=== PATIENT | male | born 1935 | race Caucasian/White ===

== ENCOUNTER 2020-02-29 10:52 | Emergency (ER) | payer OTHER ==
[2020-02-29] MEDS ORDERED: Sodium Chloride 0.9% 10 ML Syringe FLUSH PRN (11:10)
[2020-02-29] MEDS: Diltiazem 25 MG/5 ML SDV IVPUSH ONE (11:27)
[2020-02-29] MEDS: Diltiazem IR 60 MG Tab PO ONE (11:55)
--- NOTE | 2020-02-29 13:01 | EDM.PDOC ---
ED HPI GENERAL MEDICAL PROBLEM - General Chief Complaint: Chest Pain Stated Complaint: Chest Pain Time Seen by Provider: 02/29/20 10:56 Source of Information: Reports: Patient, Other ([place] Home) History Limitations: Reports: No Limitations - History of Present Illness INITIAL COMMENTS - FREE TEXT/NARRATIVE: Patient sent to ER for evaluation of complaint of left chest discomfort and near-syncope sensation. Chest pain resolved by time of arrival. Denies any other acute changes. No covid exposure. No fevers/chills No HEENT changes such as cold symptoms/sore throat/cold symptoms. No Resp changes. Has baseline chronic SOB that is unchanged. No new cough/wheeze/sputum. CV + for short episode left sided chest discomfort/now resolved. No palpitations. + for dizziness/feeling like going to pass out. GI negative for acute changes/nausea/emesis/bowel changes Gu negative for acute changes. Hx BPH/chronic issues with frequency and nocturia. Neuro negative for acute changes. No reported med changes. - Related Data Allergies Allergy/AdvReac Type Severity Reaction Status Date / Time aspirin Allergy Cannot Verified 02/29/20 11:16 Remember colestipol Allergy Cannot Verified 02/29/20 11:17 Remember etodolac Allergy Cannot Verified 02/29/20 11:17 Remember simvastatin Allergy Cannot Verified 02/29/20 11:18 Remember Home Meds: Home Meds Alfuzosin HCl [Alfuzosin HCl ER] 10 mg PO BEDTIME 02/29/20 [History] Apixaban [Eliquis] 2.5 mg PO BID@02/29/20 [History] Cholecalciferol (Vitamin D3) [Vitamin D3] 2,000 unit PO DAILY 02/29/20 [History] Clopidogrel Bisulfate [Clopidogrel] 75 mg PO BEDTIME 02/29/20 [History] Furosemide 20 mg PO MOWEFR@02/29/20 [History] Isosorbide Mononitrate [Imdur] 60 mg PO DAILY 02/29/20 [History] Levothyroxine Sodium [Synthroid] 100 mcg PO DAILY 02/29/20 [History] Metoprolol Succinate 50 mg PO DAILY 02/29/20 [History] Nitroglycerin 0.4 mg SL ASDIRECTED 02/29/20 [History] Omeprazole 40 mg PO BID@02/29/20 [History] Rosuvastatin Calcium 20 mg PO DAILY 02/29/20 [History] Sennosides/Docusate Sodium [Senna Plus Tablet] 2 each PO BID@02/29/20 [History] traMADol [Ultram] 50 mg PO TID PRN 02/29/20 [History] Past Medical History HEENT History: Reports: Hard of Hearing, Macular Degeneration Cardiovascular History: Reports: Afib, CAD, Heart Failure, High Cholesterol, Hypertension, Other (See Below) (First degree AV block, carotid artery stenosis) Gastrointestinal History: Reports: Chronic Constipation, GERD Genitourinary History: Reports: BPH, Chronic Renal Insuffiency Musculoskeletal History: Reports: Back Pain, Chronic, Osteoarthritis Neurological History: Reports: CVA Endocrine/Metabolic History: Reports: Hypothyroidism, Obesity/BMI 30+, Vitamin D Deficiency Social & Family History - Tobacco Use Smoking Status *Q: Never Smoker ED ROS GENERAL - Review of Systems Review Of Systems: Comprehensive ROS is negative, except as noted in HPI. ED EXAM, GENERAL - Physical Exam Exam: See Below Exam Limited By: No Limitations General Appearance: Alert, No Apparent Distress, Obese Eye Exam: Bilateral Eye: EOMI, PERRL Ears: Other (Hard of hearing) Nose: No: Nasal Deformity, Nasal Swelling, Nasal Drainage Throat/Mouth: Normal Lips, Normal Voice, No Airway Compromise Head: Atraumatic, Normocephalic Neck: Supple Respiratory/Chest: No Respiratory Distress, Lungs Clear, No Accessory Muscle Use, Chest Non-Tender Cardiovascular: Tachycardia, Irregularly Irregular GI/Abdominal: Soft, Non-Tender, Other (obese) (Male) Exam: Deferred Rectal (Males) Exam: Deferred Back Exam: No: CVA Tenderness (L), CVA Tenderness (R), Muscle Spasm Extremities: Normal Capillary Refill Neurological: Alert, Oriented, Other (equal tone/strength bilat) Psychiatric: Normal Affect, Normal Mood Skin Exam: Warm, Dry, Intact, Normal Color EKG INTERPRETATION EKG Date: 02/29/20 Time: 10:57 Rhythm: A-Fib Rate (Beats/Min): 135 [place]: Normal P-Wave: Absent QRS: Other (bifasicular block) ST-T: Other (no acute changes suggestive is ischemia noted) QT: Normal Comparison: NA - No Prior EKG Course - Vital Signs Last Recorded V/S: Last Vital Signs Temp 36.1 C 02/29/20 10:55 Pulse 97 02/29/20 10:55 Resp 16 02/29/20 10:55 BP 125/83 02/29/20 10:55 Pulse Ox 93 L 02/29/20 10:55 - Orders/Labs/Meds Orders: Active Orders 24 hr Category Date Time Status EKG Documentation Completion [RC] ASDIRECTED Care 02/29/20 11:12 Active Chest 2V [CR] Stat Exams 02/29/20 11:14 Taken TSH ULTRASENSITIVE [CHEM] Stat Lab 02/29/20 12:51 Ordered Sodium Chloride 0.9% [Saline Flush] Med 02/29/20 11:10 Active 10 ml FLUSH ASDIRECTED PRN Saline Lock Insert [OM.PC] Stat Oth 02/29/20 11:11 Ordered Medication Orders Sodium Chloride (Saline Flush) 10 ml FLUSH ASDIRECTED PRN PRN Reason: Keep Vein Open Labs: Laboratory Tests 02/29/20 02/29/20 02/29/20 Range/Units 11:15 11:15 11:15 WBC 8.9 (4.0-10.2) K/uL RBC 4.76 (4.33-5.41) M/uL Hgb 14.5 (13.1-16.8) g/dL Hct 42.7 (39.0-49.0) % MCV 89.7 (84.0-98.0) fL MCH 30.5 (28.2-33.3) pg MCHC 34.0 (31.7-36.0) g/dL RDW 14.5 H (11.2-14.1) % Plt Count 187 (150-350) K/uL Neut % (Auto) 67.0 (45.0-80.0) % Lymph % (Auto) 20.7 (10.0-50.0) % [place] % (Auto) 11.4 (2.0-14.0) % Eos % (Auto) 0.7 (0.0-5.0) % Baso % (Auto) 0.2 (0.0-2.0) % Neut # (Auto) 5.95 (1.40-7.00) K/uL Lymph # (Auto) 1.84 (0.50-3.50) K/uL [place] # (Auto) 1.01 H (0.00-1.00) K/uL Eos # (Auto) 0.06 (0.00-0.50) K/uL Baso # (Auto) 0.02 (0.00-0.20) K/uL PT 10.0 (9.5-12.0) SEC INR 1.0 Sodium 144 (136-145) mmol/L Potassium 4.1 (3.5-5.1) mmol/L Chloride 108 H (98-107) mmol/L Carbon Dioxide 26.1 (21.0-32.0) mmol/L BUN 19 H (7-18) mg/dL Creatinine 1.37 H (0.51-1.17) mg/dL Est Cr Clr Drug Dosing 42.48 mL/min Estimated GFR (MDRD) 49 mL/min Glucose 104 (74-106) mg/dL Lactic Acid (0.4-2.0) mmol/L Calcium 8.4 L (8.5-10.1) mg/dL Magnesium 2.0 (1.8-2.4) mg/dL Total Bilirubin 0.3 (0.2-1.0) mg/dL AST 15 (15-37) U/L ALT 16 (12-78) U/L Alkaline Phosphatase 95 (46-116) IU/L Creatine Kinase 111 (26-308) U/L Creatine Kinase Index 2.0 (0.0-2.5) % CK-MB (CK-2) 2.20 (0.00-3.60) ng/mL Troponin I 0.001 (0.000-0.056) ng/mL NT-Pro-B Natriuret Pep 3687 H (0-125) pg/mL Total Protein 6.8 (6.4-8.2) g/dL Albumin 3.0 L (3.4-5.0) g/dL Specimen Type Urine Color Urine Appearance Urine pH (5.0-9.0) Ur Specific [place] (1.005-1.030) Urine Protein (NEGATIVE) mg/dL Urine Glucose (UA) (NEGATIVE) mg/dL Urine Ketones (NEGATIVE) mg/dL Urine Occult Blood (NEGATIVE) Urine Nitrite (NEGATIVE) Urine Bilirubin (NEGATIVE) Urine Urobilinogen (0.2-1.0) E.U./dL Ur Leukocyte Esterase (NEGATIVE) U Hyaline Cast (Auto) Urine RBC /HPF Urine WBC /HPF Ur Epithelial Cells /LPF Urine Bacteria (NONE TO FEW) /HPF Urine Mucus (NEGATIVE) /LPF 02/29/20 02/29/20 Range/Units 11:15 13:15 WBC (4.0-10.2) K/uL RBC (4.33-5.41) M/uL Hgb (13.1-16.8) g/dL Hct (39.0-49.0) % MCV (84.0-98.0) fL MCH (28.2-33.3) pg MCHC (31.7-36.0) g/dL RDW (11.2-14.1) % Plt Count (150-350) K/uL Neut % (Auto) (45.0-80.0) % Lymph % (Auto) (10.0-50.0) % [place] % (Auto) (2.0-14.0) % Eos % (Auto) (0.0-5.0) % Baso % (Auto) (0.0-2.0) % Neut # (Auto) (1.40-7.00) K/uL Lymph # (Auto) (0.50-3.50) K/uL [place] # (Auto) (0.00-1.00) K/uL Eos # (Auto) (0.00-0.50) K/uL Baso # (Auto) (0.00-0.20) K/uL PT (9.5-12.0) SEC INR Sodium (136-145) mmol/L Potassium (3.5-5.1) mmol/L Chloride (98-107) mmol/L Carbon Dioxide (21.0-32.0) mmol/L BUN (7-18) mg/dL Creatinine (0.51-1.17) mg/dL Est Cr Clr Drug Dosing mL/min Estimated GFR (MDRD) mL/min Glucose (74-106) mg/dL Lactic Acid 2.1 H (0.4-2.0) mmol/L Calcium (8.5-10.1) mg/dL Magnesium (1.8-2.4) mg/dL Total Bilirubin (0.2-1.0) mg/dL AST (15-37) U/L ALT (12-78) U/L Alkaline Phosphatase (46-116) IU/L Creatine Kinase (26-308) U/L Creatine Kinase Index (0.0-2.5) % CK-MB (CK-2) (0.00-3.60) ng/mL Troponin I (0.000-0.056) ng/mL NT-Pro-B Natriuret Pep (0-125) pg/mL Total Protein (6.4-8.2) g/dL Albumin (3.4-5.0) g/dL Specimen Type Urinblad Urine Color Yellow Urine Appearance Clear Urine pH 5.5 (5.0-9.0) Ur Specific [place] 1.020 (1.005-1.030) Urine Protein Negative (NEGATIVE) mg/dL Urine Glucose (UA) Negative (NEGATIVE) mg/dL Urine Ketones Negative (NEGATIVE) mg/dL Urine Occult Blood Negative (NEGATIVE) Urine Nitrite Negative (NEGATIVE) Urine Bilirubin Negative (NEGATIVE) Urine Urobilinogen 0.2 (0.2-1.0) E.U./dL Ur Leukocyte Esterase Negative (NEGATIVE) U Hyaline Cast (Auto) Few Urine RBC 0-5 /HPF Urine WBC 0-5 /HPF Ur Epithelial Cells Few /LPF Urine Bacteria Few (NONE TO FEW) /HPF Urine Mucus Few H (NEGATIVE) /LPF Meds: Medications Generic Name Dose Route Start Last Admin Trade Name [place] PRN Reason Stop Dose Admin Sodium Chloride 10 ml 02/29/20 11:10 Saline Flush FLUSH ASDIRECTED PRN Keep Vein Open Discontinued Medications Generic Name Dose Route Start Last Admin Trade Name Freq PRN Reason Stop Dose Admin Diltiazem HCl 10 mg 02/29/20 11:21 02/29/20 11:27 Diltiazem IVPUSH 02/29/20 11:22 10 mg ONETIME ONE Administration Diltiazem HCl 60 mg 02/29/20 11:51 02/29/20 11:55 Cardizem PO 02/29/20 11:52 60 mg ONETIME ONE Administration Diltiazem HCl 10 mg 02/29/20 13:44 Diltiazem IVPUSH 02/29/20 13:45 ONETIME ONE - Radiology Interpretation Free Text/Narrative:: Chest xray shows no acute infiltrates/pneumothorax. Some fibrotic changes/CHF noted. Pending formal RAdiololgy review - Re-Assessments/Exams Free Text/Narrative Re-Assessment/Exam: 02/29/20 13:32 Patient noted to have heart rate vary from 80s to 140s, even at rest. Initial EKG showed Afib. Several minutes later another EKG showed sinus rhythm with 1st degree block with rate of 82. Patient then went back into Afib. Given Cardizem IV which did help decrease observed rate. This was followed by PO dose. proBNP elevated. Troponin negative. Unable to obtain DDimer with usual cardiac workup due to lab issues. Elevated BUN/cr/has history of chronic renal disease. Patient remained pain-free throughout stay. He did complaint of feeling like he might pass out again when standing to use bathroom. Given the Afib/RVR and pre-syncopal complaints, it was felt that admission for further evaluation would be beneficial. [facility] [place] [facility]. She wanted us to run pt by [facility] or [place] to see if he would benefit from Cardiology consult and gave permission ultimately for us to transfer patient to [facility] for further evaluation. Departure - Departure Time of Disposition: 13:31 Disposition: DC/Tfer to Acute Hospital 02 Condition: Good Clinical Impression: Atrial fibrillation with RVR, Pre-syncope - Discharge Information *PRESCRIPTION DRUG MONITORING PROGRAM REVIEWED*: Not Applicable *COPY OF PRESCRIPTION DRUG MONITORING REPORT IN PATIENT AUTUMN: Not Applicable Referrals: Sandra Prabhakar PA [Primary Care Provider] - Forms: ED Department Discharge Sepsis Event Note (ED) - Evaluation Sepsis Screening Result: No Definite Risk - Focused Exam Vital Signs: Vital Signs Temp Pulse Resp BP Pulse Ox 02/29/20 10:55 36.1 C 97 16 125/83 93 L - My Orders Last 24 Hours: My Active Orders 02/29/20 11:10 Sodium Chloride 0.9% [Saline Flush] 10 ml FLUSH ASDIRECTED PRN 02/29/20 11:11 Saline Lock Insert [OM.PC] Stat 02/29/20 11:12 EKG Documentation Completion [RC] ASDIRECTED 02/29/20 11:14 Chest 2V [CR] Stat 02/29/20 12:51 TSH ULTRASENSITIVE [CHEM] Stat - Assessment/Plan Last 24 Hours: My Active Orders 02/29/20 11:10 Sodium Chloride 0.9% [Saline Flush] 10 ml FLUSH ASDIRECTED PRN 02/29/20 11:11 Saline Lock Insert [OM.PC] Stat 02/29/20 11:12 EKG Documentation Completion [RC] ASDIRECTED 02/29/20 11:14 Chest 2V [CR] Stat 02/29/20 12:51 TSH ULTRASENSITIVE [CHEM] Stat
[2020-02-29] MEDS ORDERED: Diltiazem 25 MG/5 ML SDV IVPUSH ONE (13:44)
[2020-02-29 15:19] VITALS: BP 80/55; PULSE 84
== END 2020-02-29 13:50 ==
LOC: LL.ED 10:52
DX: I48.91 Unspecified atrial fibrillation (principal); R55 Syncope and collapse; I13.0 Hypertensive heart and chronic kidney disease with heart failure and stage 1 through stage 4 chronic kidney disease, or unspecified chronic kidney disease; I50.9 Heart failure, unspecified; N18.9 Chronic kidney disease, unspecified; I25.10 Atherosclerotic heart disease of native coronary artery without angina pectoris; E78.00 Pure hypercholesterolemia, unspecified; K21.9 Gastro-esophageal reflux disease without esophagitis; E03.9 Hypothyroidism, unspecified; E66.9 Obesity, unspecified; Z86.73 Personal history of transient ischemic attack (TIA), and cerebral infarction without residual deficits; Z88.6 Allergy status to analgesic agent; Z88.8 Allergy status to other drugs, medicaments and biological substances; Z79.899 Other long term (current) drug therapy; Z68.35 Body mass index [BMI] 35.0-35.9, adult
CPT/HCPCS: 36415; 71046; 80053; 81001; 82550; 82553; 83605; 83735; 83880; 84443; 84484; 85025; 85610; 93005; 93010; 96374; 99284; 99285-25; A9270-GY; J3490